=== PATIENT | male | born 1980 | race Caucasian/White ===

== ENCOUNTER 2025-06-23 13:01 | Emergency (ER) | payer MEDICARE, OTHER ==
[~2025-06-23] VITALS: Ht 190.5 cm; Wt 82.3 kg
[~2025-06-23 13:01] MED LIST: NORCO 5-325 TA1 EACH PO; ZOFRAN ODT4 MG PO
--- OUTSIDE RECORDS SUMMARY | 2025-06-23 13:08 | XMS ---
PreManage Notification: FLAQUITO GOODMAN Security Assistant [employer] Events No recent Security Events currently on file CRITERIA MET - 6 ED Visits in 6 Months - [facility] - 2 Visits in 30 Days - [facility] - 3 Facilities in 90 Days CARE PROVIDERS -, [facility]: Dental Current Dental PHONE: [phone] MARYA MARTINEZ Nurse Practitioner: Adult Health Current PHONE: Unknown CHAPARRO BLACKBURN [facility]/Center: [facility] PHONE: Unknown CARA HALLMAN [facility] Current PHONE: [phone] YAZMIN CANDELARIA Nurse Practitioner: Family Current PHONE: [phone] [place]INCENT Nurse Practitioner Current NADIYA PHONE: [phone] Milagros has no Care Guidelines for this patient. E.D. VISIT COUNT (12 MO.) 15 Didier Finn (Ilene KNOX) 6 Ilene Huffman [facility] (Olivia Baker) 1 TOPHER Kumar TOTAL 22 NOTE: Visits indicate total known visits. ED/UCC VISIT TRACKING (12 MO.) 06/23/2025 13:02 TOPHER [facility] [place] TYPE: Emergency COMPLAINT: - POST OP PROBLEM 06/22/2025 13:58 [facility]ier [facility]IREZ [facility] ([facility]) TYPE: Emergency DIAGNOSES: - Other acute postprocedural pain - Bottom Pain - Wound Check 06/18/2025 08:50 Didier [facility] ([facility]) TYPE: Emergency DIAGNOSES: - Other acute postprocedural pain - Followup Medical problem - Post-op Problem 06/02/2025 15:47 Didier [facility] ([facility]) TYPE: Emergency DIAGNOSES: - Panic disorder [episodic paroxysmal anxiety] - Mental Health Evaluation - Mental Health; PTSD 05/18/2025 11:17 Didier RAMIREZ [facility] ([facility]) TYPE: Emergency DIAGNOSES: - Diarrhea, unspecified - Nausea with vomiting, unspecified - Flu Like Symptoms - Flu Symptoms 05/17/2025 14:28 [facility] Chele REYNOSO (Olivia Baker) TYPE: Emergency DIAGNOSES: - Diarrhea, unspecified - Nausea with vomiting, unspecified - abd pain, vomiting - Abdominal Pain - Emesis 05/01/2025 16:22 Didier RAMIREZ [facility] ([facility]) TYPE: Emergency DIAGNOSES: - Cannabis hyperemesis syndrome - Chronic pain syndrome - Opioid use, unspecified, uncomplicated - Other correction (current) drug therapy - Emesis - Emisis 04/25/2025 07:44 Didier RAMIREZ [facility] ([facility]) TYPE: Emergency DIAGNOSES: - Radiculopathy, lumbar region - Back Pain 04/22/2025 15:02 Didier RAMIREZ [facility] ([facility]) TYPE: Emergency DIAGNOSES: - Insomnia, unspecified - Insomnia 04/22/2025 03:58 Didier RAMIREZ [facility] ([facility]) TYPE: Emergency DIAGNOSES: - Insomnia, unspecified - Insomnia - Sleeping issue 03/24/2025 13:31 Didier T[facility]Db NATASHA VELÁSQUEZ OR ([facility]) TYPE: Emergency DIAGNOSES: - Insomnia, unspecified - Hasn't slept in 8 days - Insomnia 03/12/2025 17:46 Didier TovarDb NATASHA VELÁSQUEZ OR ([facility]) TYPE: Emergency DIAGNOSES: - Fall (on) (from) other stairs and steps, initial encounter - Fall - Followup Medical Problem 11/13/2024 11:28 Didier T[facility] NATASHA BHAKTAE [facility] ([facility] TYPE: Emergency DIAGNOSES: - Nausea - Viral intestinal infection, unspecified - Diarrhea (Adult) - Emesis - Nausea; Diarrhea 09/09/2024 13:48 [facility] [place] [facility] (Olivia Bakre) TYPE: Emergency DIAGNOSES: - Low back pain, unspecified - Other acute postprocedural pain - Spondylolisthesis, lumbar region - post op problem - Post-op Problem 09/08/2024 21:55 Didier TovarDb RAMIREZ [facility] ([facility]) TYPE: Emergency DIAGNOSES: - Lumbago with sciatica, left side - Back Pain - Follow up medical probelm 09/06/2024 09:50 Didier Robbriana GuyDb RAMIREZ [facility] ([facility] TYPE: Emergency DIAGNOSES: - Encounter for removal of sutures - Suture Removal 08/27/2024 20:51 Didier Robbriana GuyDb RAMIREZ [facility] ([facility] ) TYPE: Emergency DIAGNOSES: - Low back pain, unspecified - Back Pain - follow up medical problem - Post-op Problem 07/27/2024 10:[address] [facility] REYNOSO (Olivia Baker) TYPE: Emergency DIAGNOSES: - Low back pain, unspecified - Other chronic pain - Back Pain - med refill - Medication Refill 07/23/2024 17:03 [facility] Olivia REYNOSO ([place]) TYPE: Emergency DIAGNOSES: - Dorsalgia, unspecified - lt side pain - Medication Refill 07/17/2024 12:49 [facility] Olivia REYNOSO ([place]) TYPE: Emergency DIAGNOSES: - Contusion of scalp, initial encounter - Lumbago with sciatica, left side - Unspecified fall, initial encounter - Unspecified fall, initial encounter - Back Pain - fall, weakness, back pain Plus 2 More Visits INPATIENT VISIT TRACKING (12 MO.) 08/26/2024 09:[facility] TYPE: Neuro Surgery DIAGNOSES: - Other intervertebral disc displacement, lumbar region - Other low back pain [email or web address]
[2025-06-23] MEDS ORDERED: LITHIUM CARBON450 MG PO (13:11)
[2025-06-23] MEDS ORDERED: DIAZEPAM5 MG PO (13:11)
[2025-06-23] MEDS ORDERED: LORAZEPAM1 MG PO (13:11)
[2025-06-23] MEDS ORDERED: PRAZOSIN HCL2 MG PO (13:12)
[2025-06-23] MEDS ORDERED: HYDROCODON-ACE1 EAC8 PO (13:13)
[2025-06-23] MEDS ORDERED: LIDOCAINE HCL 4% 5 GM TUBE TOP ONE (13:45)
[2025-06-23] MEDS ORDERED: ANECREAM5 GM TOP (13:53)
== END 2025-06-23 13:58 | disposition home or self-care (01) ==
LOC: ED 13:01
DX: G89.18 Other acute postprocedural pain (principal); K62.89 Other specified diseases of anus and rectum; I10 Essential (primary) hypertension; F17.200 Nicotine dependence, unspecified, uncomplicated; Z88.0 Allergy status to penicillin; Z88.8 Allergy status to other drugs, medicaments and biological substances
CPT/HCPCS: 99283